=== PATIENT | male | born 1995 | race Caucasian/White ===

== ENCOUNTER 2019-07-03 08:49 | Emergency (ER) | payer BC, SELFPAY ==
[2019-07-03 08:51] VITALS: BP 157/89; PULSE 60; RESP 16; TEMP 36.6; O2SAT 96
--- NOTE | 2019-07-03 08:51 | ED.GENADUL_ITS ---
Discharge Plan Disposition Patient Disposition: HOME Condition: Good Discharge Details Chief Complaint: RespSymp Clinical Impression: URI (upper respiratory infection) Primary Care Provider: None,None ED Provider: Efren Acosta Home Meds and New Rx's Prescriptions: No Action No Known Home Meds RF: 0 Discharge Instructions Instructions: Upper Respiratory Infection (ED) Additional Instructions: You have a viral upper respiratory infection. Your strep test is negative. Influenza test is negative. Please drink 10 to 12 cups of fluid every day, get plenty of rest, you can take 1000 mg of Tylenol every 6 hours and up to 800 mg of ibuprofen every 6 hours as needed for pain aches, and unease. Please wash your hands frequently. If you notice any worsening of your symptoms, or any new symptoms such as severe headache, severe neck pain, vomiting, diarrhea, fever, chills, shortness of breath, chest pain, numbness, weakness, or fainting , please return immediately to the emergency department for reevaluation. Please follow up with your primary care provider as soon as possible for reassessment and reevaluation. As always, it was a pleasure participating in your medical care today. Stand Alone Forms: School Release Medical Decision Making This is a 24-year-old male with no significant past medical history who presents today for evaluation of malaise, chills, sore throat, very mild headache, few episodes of vomiting last night with total symptoms present for the last 3 days. He had a roommate at his college who had similar symptoms a few days ago. Physical exam is notably benign, vital signs reassuring, no clinical evidence of meningitis, severe tonsillar abscess, or Israel angina. No other significant evidence of an acute surgical abdomen, concerning breath sounds, or other abnormalities. Signs and symptoms appear clinically consistent with viral URI. We will evaluate for strep and flu at this time. He is not a candidate for Tamiflu, however I do feel that it would be beneficial for understanding his treatment and prognosis. 9:37 AM The patient's influenza and strep are returned negative, signs and symptoms clinically consistent with mild viral upper respiratory infection. Discussed the importance of fluids, Tylenol Motrin and close follow-up. No current clinical evidence of life-threatening ENT illness or etiology. I have extensively reviewed the treatment plan and discharge instructions with the patient. I have addressed all patient concerns at this time. The patient was made aware of what symptoms to monitor for that would warrant a return to the emergency department. Discussed the plan with the patient, they demonstrate verbal understanding and agreement with our assessment and plan at this time. HPI General Date/Time Provider Initiated Documentation: 07/03/19 08:50 . HPI Narrative: This is a 24-year-old male with no significant past medical history whose immunizations are up-to-date who presents for 3 days of malaise, sore throat, chills, mild headache, and a few episodes of vomiting last night. He is at college, his roommate had similar symptoms a few days ago. These have now resolved. He has not taken any Tylenol or Motrin. He has been able to keep down food since this morning. He has not gotten his flu shot. He denies any complaints of difficulty breathing, diarrhea, bloody stools, bloody vomit, numbness or tingling, neck pain or neck stiffness, chest pain, shortness of breath. He denies any other complaints at this time. No other modifying factors. Related Data Home Medications Medication Instructions Recorded Confirmed Unknown [No Known Home Meds] 07/03/19 07/03/19 Allergies Allergy/AdvReac Type Severity Reaction Status Date / Time lactose AdvReac Diarrhea Unverified 07/03/19 08:58 Review of Systems Review of Systems ROS Unobtainable: All systems reviewed & are unremarkable except as noted in HPI and below PFSH Social History Smoking/Tobacco Use Status: Former Tobacco Use Alcohol Intake: current Alcohol Intake frequency: holidays/special occasions only Drug use: Never Substance use type: does not use Do you feel safe at home: Yes Do you feel safe in your relationship?: Yes Exam Narrative Exam Narrative: 1.Const: Well-nourished, Well-developed, appearing stated age 2.Eyes: PERRL, no conjunctival injection, and symmetrical lids. 3.ENT: Atraumatic external nose and ears. Moist MM. Neck: Symmetric, trachea midline, No thyromegaly. No significant hypertrophy of the tonsils, minimal erythema in the posterior oropharynx, mild cobblestoning of the posterior oropharynx. Minimal cervical adenopathy, no evidence of peritonsillar abscess, tracheal deviation, or Israel's angina. Patient demonstrates good movement of cervical neck. There is no nuchal rigidity, no nuchal tenderness. Patient is able to flex the neck without any difficulty or significant pain. Negative Kernig's and Brudzinski sign. No evidence of otitis media or otitis externa 4.CVS: +S1/S2, No murmurs or gallops. Peripheral pulses 2+ and equal in all extremities. Brisk capillary refill in all extremities. 5.RESP: Unlabored respiratory effort. Clear to auscultation bilaterally. No wheezes rales or rhonchi 6.GI: Soft, Nontender/Nondistended, No hepatosplenomegaly. No guarding or rebound. 7.MSK: Normocephalic/Atraumatic, Extremities w/o deformity or ttp No cyanosis or clubbing, Normal movement of all extremities 8.Skin: Warm, Dry. No rashes or lesions. 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 Sensation grossly intact, no focal neurologic deficits. 10.Psych: (AAO) x3. Appropriate mood and affect
[2019-07-03] MEDS: Acetaminophen 500 MG TAB 1000 MG PO (09:28)
[2019-07-03] MEDS: Ibuprofen 800 MG TAB PO (09:29)
[2019-07-03 09:42] VITALS: BP 128/76; PULSE 89; RESP 18; TEMP 36.3; O2SAT 98
== END 2019-07-03 09:46 | disposition home or self-care (01) ==
PROVIDERS: Emergency Provider Student in an Organized Health Care Education/Training Program
DX: J06.9 Acute upper respiratory infection, unspecified (principal)
CPT/HCPCS: 87449; 87880; 99282; 87081